=== PATIENT | male | born 2000 | race Caucasian/White ===

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

== ENCOUNTER 2018-02-19 22:34 | Emergency (ER) | payer OTHER ==
[2018-02-19] MEDS ORDERED: NS 1,000 ML IV ONE (22:55)
[2018-02-19] MEDS ORDERED: KETOROLAC 15 MG/1 ML SDV IVP ONE (22:55)
[2018-02-19] MEDS ORDERED: DEXAMETHASONE 10 MG/ML VIAL IVP ONE (22:55)
[2018-02-19] MEDS ORDERED: AMOXICILLIN/CLAVULANATE POT 875/125 MG TAB PO ONE (22:57)
--- NOTE | 2018-02-19 23:04 | EDPHY ---
H & P Stated Complaint: swollen throat x2 days, fever/chills, general aches Time Seen by Provider: 02/19/18 22:46 HPI/ROS: CHIEF COMPLAINT: Sore throat x2 days HISTORY OF PRESENT ILLNESS: 17-year-old immunocompetent male complaining of 2 days of sore throat. No trismus or drooling. He is able swallow secretions albeit with pain. No nuchal rigidity. No headache. No nausea or vomiting. No back or flank pain. No rash. PRIMARY CARE PROVIDER: REVIEW OF SYSTEMS: 10 systems reviewed and negative with the exception of the elements mentioned in the history of present illness PAST MEDICAL & SURGICAL HISTORY: SOCIAL HISTORY: Student PHYSICAL EXAM (Prior to examination, patient consented to physical exam, hands were washed and my usual and customary physical exam procedures followed) 1) GENERAL: Well-developed, well-nourished, alert and oriented. Appears uncomfortable 2) HEAD: Normocephalic, atraumatic 3) HEENT: Pupils equal, round, reactive to light bilaterally. Sclera anicteric. Oropharynx: Bilateral tonsils are symmetrically enlarged with exudate. No pointing of the uvula. No trismus or drooling no hot potato voice. Moist Mucous membranes. Ears bilaterally with normal tympanic membranes. 4) NECK: Full range of motion, no meningeal signs. Positive submandibular adenopathy 5) LUNGS: Clear auscultation bilaterally, no wheezes, no rhonchi, no retractions. 6) HEART: Regular rate and rhythm, no murmur, no heave, no gallop. 7) ABDOMEN: No guarding, no rebound, no focal tenderness, negative McBurney's, negative Porras's, negative Rovsing's, negative peritoneal sign, 8) MUSCULOSKELETAL: Moving all extremities, no focal areas of tenderness, no obvious trauma. No peripheral edema or discoloration. 9) BACK: No CVA tenderness, no midline vertebral tenderness, no fluctuance, no step-off, no obvious trauma, no visual or palpable abnormality. 10) SKIN: No rash, no petechiae. 11) Psychiatric: Patient is oriented X 3, there is no agitation. DIFFERENTIAL DIAGNOSIS: In no particular order, my differential diagnosis includes, but is not limited to, strep pharyngitis, viral pharyngitis, peritonsillar abscess, retropharyngeal abscess or plegmon, mononucleosis, meningitis, Lemierre syndrome. - Personal History Current Tetanus Diphtheria and Acellular Pertussis (TDAP): Yes - Medical/Surgical History Hx Asthma: No Hx Chronic Respiratory Disease: No Hx Diabetes: No Hx Cardiac Disease: No Hx Renal Disease: No Hx Cirrhosis: No Hx Alcoholism: No Hx HIV/AIDS: No Hx Splenectomy or Spleen Trauma: No Other PMH: denies - Social History Smoking Status: Never smoked Constitutional: Initial Vital Signs Temperature (C) 37.6 C 02/19/18 22:40 Heart Rate 106 H 02/19/18 22:40 Respiratory Rate 18 02/19/18 22:40 Blood Pressure 133/76 H 02/19/18 22:40 O2 Sat (%) 97 02/19/18 22:40 O2 Delivery Mode Room Air Allergies/Adverse Reactions: No Known Allergies Allergy (Unverified 02/19/18 22:44) Home Medications: Medication Instructions Recorded Amoxicillin/Clavulanate Pot 875 mg PO BID #14 tab 02/20/18 [Augmentin 875 mg tab] methylPREDNISolone [Medrol Dose 4 mg PO DAILY #1 ea 02/20/18 Aayush] Medical Decision Making ED Course/Re-evaluation: 10:50 p.m.: Doubt peritonsillar abscess. I think the patient would feel significant improvement if you were given IV fluids, IV Toradol, Decadron started on antibiotics. High clinical suspicion for strep pharyngitis. Doubt peritonsillar abscess, retropharyngeal abscess or phlegmon, doubt Lemierre syndrome. 12:30 a.m.: Re-evaluation. [place] testing negative. He is feeling "much much better" after IV Decadron and IV fluid and Toradol. I think the patient can be discharged home. Doubt peritonsillar abscess or deep space infection. No evidence of impending airway compromise. Doubt epiglottitis. Have recommend he follow up with ENT later on today and given him this referral information as well as a school note. Continued Medrol Dosepak, Augmentin. He feels comfortable being discharged home. I saw this patient independently based on established practice protocols. Care of patient under supervision of secondary supervising physician Dr Manjarrez with whom I discussed case. - Data Points Laboratory Results: 02/19/18 23:01 Monoscreen NEGATIVE (NEGATIVE) Medications Given: Discontinued Medications Amoxicillin/Clavulanate Potassium (Augmentin 875mg) 875 mg PO EDNOW ONE PRN Reason: Protocol Stop: 02/19/18 22:58 Last Admin: 02/19/18 23:07 Dose: 875 mg Dexamethasone (Decadron Injection) 10 mg IVP EDNOW ONE Stop: 02/19/18 22:56 Last Admin: 02/19/18 23:07 Dose: 10 mg Sodium Chloride (Ns) 1,000 mls @ 0 mls/hr IV ONCE ONE PRN Reason: Wide Open Stop: 02/19/18 22:56 Last Admin: 02/19/18 23:06 Dose: 1,000 mls Ketorolac Tromethamine (Toradol) 15 mg IVP EDNOW ONE Stop: 02/19/18 22:56 Last Admin: 02/19/18 23:07 Dose: 15 mg Departure - Departure Disposition: Home, Routine, Self-Care Clinical Impression: Acute streptococcal pharyngitis Condition: Good Instructions: Strep Throat (ED) Additional Instructions: Return to the ER immediately if you cannot swallow, have drooling, fevers, neck stiffness, cannot open your jaw, or any other symptoms that concern you. Referrals: Marcos Navarro MD [Medical Doctor] - 1 day without fail Stand Alone Forms: School Excuse Prescriptions: Amoxicillin/Clavulanate Pot [Augmentin 875 mg tab] 875 mg PO BID #14 tab methylPREDNISolone [Medrol Dose Aayush] 4 mg PO DAILY #1 ea
[2018-02-19] MEDS ORDERED: DEXAMETHASONE 10 MG/ML VIAL ONE (23:10)
[2018-02-20 00:47] VITALS: BP 129/55
== END 2018-02-20 00:46 | disposition home or self-care (01) ==
DX: J02.0 Streptococcal pharyngitis (principal)
CPT/HCPCS: 96374; J1100; J1885

== ENCOUNTER 2018-04-30 22:43 | Emergency (ER) | payer OTHER ==
[2018-04-30] MEDS ORDERED: DEXAMETHASONE 4 MG/ML VIAL ONE (23:12)
--- NOTE | 2018-04-30 23:13 | EDPHY ---
H & P Stated Complaint: Tonsils out sunday, increasing bleeding, pain, trouble swallowing Time Seen by Provider: 04/30/18 22:49 HPI/ROS: HPI The patient presents with bleeding from his tonsillectomy site which began tonight. The patient is postop day 4. From bilateral tonsillectomy. He had an episode of bleeding about 2 days ago which resolved with Afrin and ice. He had another episode which occurred tonight which was mild. He again used Afrin and ice rinse, however the bleeding increased and he had to spit into a bucket, he bled a fair amount and now comes into the emergency department. Since he has been here, the bleeding has improved. He is having no difficulty breathing. REVIEW OF SYSTEMS 10 systems were reviewed and negative with the exception of the elements mentioned in the history of present illness. PMHx: Healthy, postoperative day 4 from bilateral tonsillectomy by Dr. Melanie Tamez Hx: Here with a friend who is at bedside PHYSICAL General Appearance: Alert, no distress Eyes: Pupils equal and round no pallor or injection ENT, Mouth: Mucous membranes moist, right tonsillar surgical site shows adherent blood clot, with small amount of red blood in the posterior pharynx, Respiratory: Breathing comfortably Neurological: A&O, moves all extremities Skin: Warm and dry, no rashes Musculoskeletal: Neck is supple non tender Extremities: symmetrical, full range of motion Psychiatric: Patient is oriented X 3, there is no agitation Source: Patient Exam Limitations: No limitations - Personal History Current Tetanus Diphtheria and Acellular Pertussis (TDAP): Yes - Medical/Surgical History Hx Asthma: No Hx Chronic Respiratory Disease: No Hx Diabetes: No Hx Cardiac Disease: No Hx Renal Disease: No Hx Cirrhosis: No Hx Alcoholism: No Hx HIV/AIDS: No Hx Splenectomy or Spleen Trauma: No Other PMH: denies - Social History Smoking Status: Never smoked Constitutional: Initial Vital Signs Temperature (C) 36.7 C 04/30/18 22:46 Heart Rate 91 04/30/18 22:46 Respiratory Rate 19 04/30/18 22:46 Blood Pressure 143/110 H 04/30/18 22:46 O2 Sat (%) 95 04/30/18 22:46 O2 Delivery Mode Room Air Allergies/Adverse Reactions: No Known Allergies Allergy (Unverified 04/30/18 22:45) Home Medications: Medication Instructions Recorded Amoxicillin/Clavulanate Pot 875 mg PO BID #14 tab 02/20/18 [Augmentin 875 mg tab] methylPREDNISolone [Medrol Dose 4 mg PO DAILY #1 ea 02/20/18 [facility]] Medical Decision Making Differential Diagnosis: This is a 17-year-old healthy male postoperative day 4 from bilateral tonsillectomy who presents with tonsillar bleeding, mostly from his right surgical site. Bleeding now has slowed though there is small amount of blood in the posterior pharynx. Dr. Navarro, who performed the operation came to the emergency department to evaluate the patient. He performed cauterization with silver nitrate and was able to suction some clots. The patient has been stable. He will receive a L of IV fluid and be discharged with follow-up as planned. Departure - Departure Clinical Impression: Post tonsillectomy secondary hemorrhage Condition: Good Instructions: Tonsillectomy (DC) Additional Instructions: Please return to the emergency department if your worse in any way. Referrals: Marcos Navarro MD [Medical Doctor] - As per Instructions
[2018-04-30] MEDS ORDERED: NS 1,000 ML IV ONE (23:15)
[2018-04-30] MEDS ORDERED: DEXAMETHASONE 10 MG/ML VIAL IVP ONE (23:29)
[2018-04-30 23:59] VITALS: BP 109/92
--- NOTE | 2018-05-01 09:53 | EDV ---
DATE OF SERVICE: 04/30/2018 IDENTIFYING DATA: This is a patient we are asked to see in the emergency room. CHIEF COMPLAINT: Postoperative tonsillectomy bleeding. HISTORY OF PRESENT ILLNESS: Ramsey had his tonsils out 5 days ago. He has been taking liquids. He had some bleeding this evening and presented to the emergency room. I came in to evaluate him. PHYSICAL EXAM: He has small clots in the tonsillar fossa bilaterally. I suctioned those and noted s ome mucosal bleeding along the edges of the anterior pillar that was cauterized. This was done with silver nitrate. He was observed, and no further bleeding was noted. IMPRESSION: Mucosal bleeding along the edges of the tonsillar fossa. RECOMMENDATION: 1. Treatment as above with silver nitrate. 2. We will give him 1 L of fluids. 3. 12 mg of Decadron IV. 4. He is taking good p.o. /[id number]/MODL
== END 2018-04-30 23:59 | disposition home or self-care (01) ==
PROC: 0W338ZZ Control Bleeding in Oral Cavity and Throat, Via Natural or Artificial Opening Endoscopic (ICD-10-PCS; principal; 2018-04-30)
DX: J95.830 Postprocedural hemorrhage of a respiratory system organ or structure following a respiratory system procedure (principal)
CPT/HCPCS: 96374; J1100